=== PATIENT | male | born 1990 | race Caucasian/White ===

== ENCOUNTER → 2019-03-05 09:34 | Outpatient (CLI) | payer OTHER, SELFPAY ==
[2019-03-05 12:55] LABS: Vitamin B12 520 pg/mL (211-911); Vitamin D,25 Hydroxy 68.7 ng/mL (29.95-100.01)
== END ==
PROVIDERS: Family Provider Family Medicine; PCP Family Medicine; Visit Provider Family Medicine
DX: R53.1 Weakness (principal); R53.83 Other fatigue; F32.9 Major depressive disorder, single episode, unspecified
CPT/HCPCS: 36415; 82306; 82607

== ENCOUNTER → 2019-09-20 | Outpatient (CLI) | payer OTHER, SELFPAY ==
[2019-09-20 12:44] LABS: Absolute Lymphocyte Count 3.23 X10^3/uL (0.83-4.51); Absolute Neutrophil Count 1.7 X10^3/uL (2.0-7.7); Basophil# 0.05 X10^3/uL; Basophil% 0.9 % (0-1); Eosinophil# 0.09 X10^3/uL; Eosinophils% 1.6 % (0-5); Hematocrit 43.5 % (40-54); Hemoglobin 14.5 g/dL (13.0-16.5); Lymphocyte # 3.23 X10^3/ul (4.0); Lymphocyte % 57.4 % (19-41); Mean Corp Hgb Conc 33.3 g/dL (32-36); Mean Corpuscular Volume 90.1 fL (80-94); Mean Platelet Vol. 10.6 fl (6.2-12.0); Monocyte# 0.56 X10^3/uL; Monocyte% 9.9 % (0-10); NRBC Flagged by Analyzer 0 % (0-5); Neutrophil # 1.69 X10^3/uL (2.7-7.7); POSITIVE MORPHOLOGY YES; Platelet Count 164 K/mm3 (150-450); RBC Distribution Width SD 42.5 fl (35.1-43.9); Red Blood Count 4.83 M/mm3 (4.6-6.2); White Blood Count 5.6 K/mm3 (4.4-11.0)
[2019-09-20 12:49] LABS: Differential Indicated SCAN CRITERIA MET
[2019-09-20 13:03] LABS: Cholesterol 197 mg/dL (200); Glucose 95 mg/dL (74-106); High Density Lipoprotein 35 mg/dL; Triglycerides 117 mg/dL; Very Low Density Lipoprotein 23 mg/dL (5-40)
[2019-09-20 13:23] LABS: Reactive Lymphocyte 1+
== END | disposition home or self-care (01) ==
PROVIDERS: Family Provider Family Medicine; PCP Family Medicine; Visit Provider Family Medicine
DX: Z00.00 Encounter for general adult medical examination without abnormal findings (principal)
CPT/HCPCS: 36415; 80061; 82947; 85025

== ENCOUNTER → 2024-09-29 | Outpatient (CLI) | payer OTHER, SELFPAY ==
[2024-09-29 12:44] LABS: Cholesterol 265 mg/dL (200); Glucose 97 mg/dL (74-106); High Density Lipoprotein 59 mg/dL; Triglycerides 82 mg/dL; Very Low Density Lipoprotein 16 mg/dL (5-40)
== END | disposition home or self-care (01) ==
LOC: BFHLAB 09:16
PROVIDERS: PCP Family Medicine; Referring Provider Family Medicine; Visit Provider Family Medicine
DX: Z00.00 Encounter for general adult medical examination without abnormal findings (principal)
CPT/HCPCS: 36415; 80061; 82947